=== PATIENT | female | born 1945 | race Caucasian/White ===

== ENCOUNTER 2017-09-04 08:19 | Inpatient (IN) | payer OTHER ==
[~2017-09-04] VITALS: Ht 160 cm; Wt 121.1 kg
--- NOTE | ~2017-09-04 | EKG ---
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: Prem DYER : 1945 Requested By: Zak Echavarria Order Number: [id number] MD: Polo Cano Measurements Intervals [place] Rate: 80 P: 51 KS: 203 QRS: -34 QRSD: 108 T: 208 QT: 371 QTc: 428 Interpretive Statements Sinus rhythm Left axis deviation RSR' in V1 or V2, probably normal variant Repol abnrm suggests ischemia, anterolateral Compared to ECG 05/21/2017 20:25:22 Left-axis deviation now present RSR' in V1 or V2 now present Early repolarization now present Possible ischemia now present Ventricular premature complex(es) no longer present T-wave abnormality no longer present Electronically Signed On 09-04-2017 14:03:00 [employer]ER [employer]IN by Polo Cano [email or web address] <ELECTRONICALLY SIGNED> By: Polo Cano MD 09/04/17 1403 1012 1012 Polo Cano MD /EPI
--- NOTE | ~2017-09-04 | H ---
[facility] [place] [address] HISTORY AND PHYSICAL Name: DORINDAMAXIM HILARIO Room #: 409-P ADM IN M.R.#: [id number] Admission: 09/04/17 Attend Phys: Mallory Thorne MD Discharge: Date of : 49 Report #: [id number] THIS REPORT FOR: //name// CC: Mallory Thorne DATE OF SERVICE: 09/04/2017 HISTORY OF PRESENT ILLNESS: The patient is a 71-year-old female who was admitted to the hospital after a fall with fracture of her right femur. The patient apparently was having a bath with a bath aide and she was turned on her left side and she said that this is the procedure that they have done all the time to bathe her, but unfortunately after she turned to the left side, she lost her balance and she slid off the bed to be between the bed and wall and she sustained fracture. The patient was brought to the Emergency Room to be evaluated. PAST MEDICAL HISTORY: Significant for fracture of the left distal femur that was treated conservatively for about a year and after that the patient went through left above-knee amputation. The patient had a history of hypokalemia, hyponatremia, respiratory failure with bilateral pneumonia, chronic lower back pain, severe neck pain that has been going on for a period of time and actually she was seen by neurologist for this pain. The patient has a history of hypertension, diabetes mellitus, diabetic neuropathy, hyperlipidemia, benign tumor of the adrenal gland, anemia and depression. The patient had a history of gastroesophageal reflux disease, anxiety disorder, insomnia, hypothyroidism, overactive bladder disease and fracture of the left hip status post ORIF. MEDICATIONS: Reviewed. ALLERGIES: NAPROXEN, LORAZEPAM and SULFA. SOCIAL HISTORY: The patient is living in a [place] [facility] facility. She denies any history of smoking, alcohol use or drug use. FAMILY HISTORY: Noncontributory. REVIEW OF SYSTEMS: The patient denies any headache, but continued to have fair amount of pain on her neck. The patient did not have any trauma to the neck as she is able to move her neck. The patient denies any nausea, vomiting or changes in her bowels. She denies any chest pain or shortness of breath. The patient denies any pain on the arms or legs. PHYSICAL EXAMINATION: VITAL SIGNS: Show a temperature of 98.3, pulse 74, respirations 16, blood pressure 134/64. HEAD AND NECK: Unremarkable. [address] [address] HISTORY AND PHYSICAL Name: MAXIM SETH Room #: 409-P [facility] IN .R.#: [id number] Admission: 09/04/17 Attend Phys: Mallory Thorne MD Discharge: Date of : 49 Report #: [id number] NECK: Supple. LUNGS: Clear to auscultation with good air entry bilaterally. CARDIAC: S1, S2, without any murmur or gallop. ABDOMEN: Benign. Bowel sounds were positive. EXTREMITIES: Without any edema. The patient has her knee immobilized on the right leg. LABORATORY DATA: The patient's lab showed white count of 13.2, hemoglobin 13, hematocrit 39.3, platelet count 400. Basic metabolic panel showed a sodium of 140, potassium 2.1, chloride 94, bicarbonate 41, BUN 12, creatinine 0.6. The patient's INR was 1 and PTT was 26.3. X-ray of the right hip showed no acute process. X-ray of the right knee showed acute transverse distal femur fracture with impaction and angulation of the fracture site. Chest x-ray showed no acute process. EKG showed sinus rhythm with left axis deviation, RSR in V1 and V2 with a possibility of being normal variation, repolarization abnormalities on the anterolateral leads. ASSESSMENT AND PLAN: Right distal femur fracture, severe osteoporosis, abnormal EKG. The patient was considered a poor candidate for surgical intervention. The patient was admitted to the hospital for pain management for now. The patient to continue her current medications. We will have Physical Therapy and Occupational Therapy to work with the patient. The patient will continue the immobilizer. We will continue to monitor the patient. <ELECTRONICALLY SIGNED> By: Mallory Thorne MD 09/06/17 0802 0730 0809 Mallory Thorne MD /nt
--- NOTE | ~2017-09-04 | O ---
[facility] [place] [address] OPERATIVE REPORT Name: DORINDAMAXIM HILARIO Room #: 409-P [facility] IN M.R.#: [id number] Admission: 09/04/17 Attend Phys: Mallory Thorne MD Discharge: 09/11/17 Date of : 49 Report #: [id number] THIS REPORT FOR: //name// CC: Mallory Thorne DATE OF SERVICE: 09/07/2017 PREOPERATIVE DIAGNOSIS: Right distal femur fracture. POSTOPERATIVE DIAGNOSIS: Right distal femur fracture. PROCEDURE: Right distal femur open reduction and internal fixation. SURGEON: Michael Tee MD. ANESTHESIA: General. ESTIMATED BLOOD LOSS: 50 mL. DRAINS: None. TOURNIQUETS: None. COMPLICATIONS: None. DESCRIPTION OF PROCEDURE: The patient was brought to the operating room where she was placed under general anesthesia. Once under adequate general anesthesia, her right lower extremity was prepped and draped in sterile manner. A lateral incision of approximately 20 cm in length was then made along the lateral femur extending to the knee. This was dissected down through the soft tissue to the tensor fascia, which was incised exposing the lateral distal femur. Any hematoma was evacuated from the fracture site and subsequently, a reduction was achieved of the fracture with subsequent fixation and utilizing fluoroscopy for guidance with a large Synthes locking distal femur plate. The distal locking screws were placed and verified under fluoroscopy to be in satisfactory position. Subsequently, the proximal screws were placed. Once complete, excellent fixation and alignment were achieved. Approximately, 5 distal screws, 4 of them locking, were placed in the condylar fragment, approximately 6 screws were placed for fixation. Excellent fixation and alignment were achieved in this manner as verified under fluoroscopy. The wound was then irrigated copiously and closed with #1 Vicryl in the deep fascia, 2-0 Vicryl in subcutaneous tissues and marija were used for the skin. The wounds were dressed with Xeroform, 4 x 4s, and sterile soft compressive dressing with a knee immobilizer was then placed. There were no complications from the [facility] [address] [place] [address] OPERATIVE REPORT Name: MAXIM SETH YANELIS Room #: 409-P [facility] IN .R.#: [id number] Admission: 09/04/17 Attend Phys: Mallory Thorne MD Discharge: 09/11/17 Date of : 49 Report #: [id number] procedure. The patient tolerated the procedure well and went to the recovery room without incident. <ELECTRONICALLY SIGNED> By: Michael Tee MD 09/27/17 1028 1206 1231 Michael Tee MD /nt
--- NOTE | ~2017-09-04 | HC ---
[facility] [place] [address] CONSULTATION Name: DORINDAMAXIM HILARIO Room #: 409-P ADM IN M.R.#: [id number] Admission: 09/04/17 Attend Phys: Mallory Thorne MD Discharge: Date of : 47 Report #: [id number] THIS REPORT FOR: //name// CC: Mallory Thorne CHIEF COMPLAINT: Right distal femur fracture. HISTORY OF PRESENT ILLNESS: This frail 71-year-old female presents after a new fall injuring her right knee. She has had previous injuries involving the left hip and then the left distal femur with a badly comminuted distal femoral fracture. That side was treated nonsurgically due to the location and nature of the fracture and other preexisting metal fixation. Ultimately that fracture failed to unite and she underwent a left above-knee amputation due to chronic pain. I believe she has been weightbearing on the right side and has been transferring, but really not ambulating much now with this new injury. X-rays confirm a fracture in the distal right femur in the supracondylar region with mild angular deformity. At the time of my evaluation, she is alert and oriented. She notes she is doing well on the left side without much discomfort at all at her previous above knee amputation site. She has done reasonably well on the right side with some ongoing intermittent discomfort. Now, she has more pain and no ability to stand or bear weight on the involved side. OBJECTIVE: The right knee and thigh demonstrate only minor swelling and no significant bruising. There is discomfort to palpation, but no obvious deformity. The lower leg, foot and ankle appear to be intact and stable. X-rays of the right knee and distal femur reveal a transverse mildly comminuted fracture of the distal femur in the supracondylar region. The joint demonstrates some degenerative change, but satisfactory joint alignment. ASSESSMENT AND PLAN: I have discussed these issues with the patient noting further treatment options. I think we probably can improve alignment and stability with surgical stabilization of this new right femur fracture. She is at some risk for perioperative problems given her size as she is moderately obese. She understands and wishes to go ahead with surgical stabilization hoping to achieve a stable and functional right lower extremity for weightbearing and transfers. I have explained that scheduling issues would suggest that this might be done by my partner, Dr. Tee tomorrow. If that is not workable then I can see about surgical time for or Monday of this week, although I have explained I am leaving town for a mission trip out of the country on Monday and so would not be available for a followup beyond that point. At this time, she would like to press ahead with surgery as soon as [facility] [address] [place] [address] CONSULTATION Name: MAXIM SETH Room #: 409-P [facility] IN M.R.#: [id number] Admission: 09/04/17 Attend Phys: Mallory Thorne MD Discharge: Date of : 47 Report #: [id number] scheduling will allow. Pending clearance and OR availability, I think we may be able to proceed with Dr. Tee performing the surgery tomorrow on 09/06/2017. <ELECTRONICALLY SIGNED> By: Fletcher Jean MD 09/07/17 0805 1731 2306 Fletcher Jean MD /nt
[~2017-09-04 08:19] MED LIST: ACETAMINOPHEN-1 EAC1 PO; ADULT LOW DOSE81 MG PO; AFRIN15 ML NS; ALDACTONE25 MG; ALDACTONE25 MG PO; ALDACTONE50 MG PO; AMBIEN 10 MG TA10 MG PO; AMBIEN 5 MG TABL5 M1 PO; AMINO-OPTI-C1000 MG PO; AMLODIPINE BESY10 MG PO; APAP500 PO; ARTIFICIAL TEA1 EACH OPHTHALMIC; ASPIR 8181 MG PO; ASPIRIN325 PO; ATORVASTATIN CA10 MG PO; AUGMENTIN 875-1 EACH PO; AUGMENTIN 875875 M1 PO; AVELOX 400 MG400 MG; B COMPLEX-VITA1 EACH PO; BACTROBAN NASAL1 GM NS; BISACODYL SUPP10 MG RECTAL; BUPROPION HCL200 MG PO; BUPROPION XL150 MG PO; BUTALB-ACETAMI1 EACH PO; BUTALB-APAP-CA1 EACH PO; CALCIUM +D & M1 EACH PO; CALCIUM 600 +1 EAC1 PO; CARISOPRODOL 3350 M1; CARISOPRODOL 3350 M1 PO; CARISOPRODOL 3350 MG; CEFTIN500 MG PO; CELEBREX 200 M200 M1 PO; CELEBREX 200 M200 MG PO; CEPHALEXIN 500500 M1 PO; CIPRO500 MG PO; CITRATE OF MAG296 ML PO; CLARITIN10 M3 PO; CLARITIN10 MG PO; CLONIDINE HCL0.1 MG PO; COLACE100 MG PO; COMPAZINE10 M1 PO; CYMBALTA60 MG PO; D3 DOTS2000 UNIT PO; DESITIN113 GM TOP; DIAZEPAM 10 MG10 M1 PO; DILAUDID 2 MG TA2 MG PO; DITROPAN XL5 M1 PO; DIVIGEL0.5 MG PO; DOXYCYCLINE 10100 MG PO; DULCOLAX5 MG PO; DUONEB 2.5-0.5 M3 ML INH; ENOXAPARIN30 MG/0.1 SUBQ; ENOXAPARIN40 MG/0.1 SUBQ; ESTRACE0.5 MG PO; FENTANYL PA12 MCG/H1 TP; FISH OIL 1,0001 EAC5 PO; FLEET ENEMA118 ML RC; FLOMAX0.4 MG PO; FOLIC ACID1 MG PO; FOSAMAX 70 MG T70 M1 PO; GABAPENTIN 100100 MG PO; GABAPENTIN800 M1 PO; GLUCOPHAGE XR500 MG PO; GLUCOPHAGE500 MG PO; GLYCOLAX POWDER17 G1 PO; HYDROCERIN CREA1 JAR TOP; HYDROCERIN CREA1 JAR TP; HYDROCHLOROTHIA25 M1 PO; HYDROCODONE-AP1 EACH PO; HYDROXYZINE HCL25 M1 PO; HYDROXYZINE PO; K-DUR 20 MEQ T20 MEQ PO; KEFLEX500 MG PO; KLOR-CON 1010 MEQ; KLOR-CON 1010 MEQ PO; LAMISIL AT 1% C12 G1 TP; LEVAQUIN 500 M500 M4 PO; LEVOTHYROXIN0.175 MG PO; LEVOTHYROXINE 0.15MG PO; LIORESAL 10 MG10 MG PO; LIPITOR10 MG PO; LISINOPRIL10 MG PO; LISINOPRIL20 MG PO; MAGNESIUM OXID400 MG PO; MAGOX 400400 MG PO; MELATONIN10 M1 PO; MELATONIN3 MG PO; METAMUCIL PAC1 UDPKT PO; METAMUCIL283 GM PO; METFORMIN HCL500 MG PO; METOLAZONE 2.52.5 M1 PO; MIRALAX17 GM PO; MS CONTIN 100100 MG PO; MS CONTIN 30 MG30 M1 PO; MS CONTIN 60 MG60 M1 PO; MS CONTIN100 MG PO; MS CONTIN15 MG PO; MS CONTIN30 MG PO; MULTIVITAMINS PO; NASAL SPRAY30 ML; NEURONTIN 300300 M1 PO; NEURONTIN600 MG PO; NORCO 7.5-3251 EACH PO; NORVASC10 MG PO; NOVOLOG100 UNIT/1 SUBQ; ONDANSETRON HCL4 M2 PO; ORAMORPH PO; ORENCIA125 MG/1 M IV; ORENCIA125 MG/1 M SQ; OXYBUTYNIN 5 MG5 M1 PO; PENTOXIFYLLINE400 MG PO; PEPCID20 MG PO; POTASSIUM20 PO; PREDNISONE 10 M10 MG PO; PREDNISONE 20 M20 MG PO; PREDNISONE 5 MG5 M1; PREDNISONE 5 MG5 M1 PO; PREPARATION H C51 G1 RC; PROBIOTIC1 EAC1 PO; PROTONIX40 M1 PO; PROTONIX40 MG PO; REMERON15 M1 PO; REMERON15 MG PO; REQUIP 0.25 M0.25 M1 PO; REQUIP 0.25 M0.25 MG PO; ROBITUSSIN DM118 ML PO; SALINE MIST45 ML NS; SALINE NASAL SP30 ML NASAL; SALINE NOSE SPR45 ML NS; SENEXON-S TABL1 EACH PO; SENNA PLUS TAB1 EACH PO; SENOKOT-S1 TA1 PO; SIMETHICON CHEW80 M1 PO; SIMVASTATIN40 MG PO; SPIRONOLACTONE25 M1 GT; SYNTHROID200 MCG PO; SYNTHROID25 MCG; TEARS NATURALE1 EACH OPHTHALMIC; TOPAMAX 100 MG100 MG PO; TOPAMAX 25 MG T25 M1 PO; TOPROL XL50 MG PO; TRAMADOL 50 MG50 MG PO; TRAMADOL HCL50 MG PO; TRAZODONE HCL50 MG PO; TRENTAL400 MG PO; TREXALL10 MG PO; TRIAM60 TP; TRIPLE ANTIBIO1 EACH TOP; TYLENOL325 MG PO; UNICOMPLEX M TA1 TA1 PO; VALIUM5 MG PO; VENTOLIN HFA INH8 GM INH; VITAMIN C120 GM PO; VITAMIN D1000 UNI1 PO; VOLTAREN GEL 1100 G2; VOLTAREN GEL 1100 G2 TOP; VOLTAREN GEL 1100 GM TOP; WELLBUTRIN XL150 MG PO; WELLBUTRIN XL300 MG PO; ZANAFLEX2 MG PO; ZANAFLEX4 MG; ZANTAC 150MG T150 M1 PO; ZAROXOLYN 2.5M2.5 M1 PO; orencia
[2017-09-04 08:21] VITALS: BP 134/64
[2017-09-04 09:45] LABS: HEMATOCRIT 39.3 % (37.0-47.0); MCH 27.7 pg (26.0-34.0); MCHC 33.2 g/dL (28.0-37.0); MCV 83.4 fL (80.0-100.0); RBC 4.71 mil/uL (4.20-5.00); RDW 15.3 % (10.5-14.5); WBC 13.2 thou/uL (4.0-11.0)
[2017-09-04 09:53] LABS: CALCIUM 9.9 mg/dL (8.5-10.1); CREATININE 0.6 mg/dL (0.6-1.0)
[2017-09-04 09:56] LABS: POTASSIUM 2.1 mmol/L (3.5-5.1)
[2017-09-04 10:02] LABS: APTT 26.3 Seconds (24.5-32.8)
[2017-09-04 10:50] VITALS: BP 134/64
[2017-09-04 11:14] VITALS: BP 133/68
[2017-09-04 11:50] VITALS: BP 115/62
[2017-09-04] MEDS ORDERED: VALIUM5 MG PO (13:16)
[2017-09-04] MEDS ORDERED: WELLBUTRIN SR150 MG PO (13:24)
[2017-09-04] MEDS ORDERED: THERA M PLUS T1 EAC2 PO (13:40)
[2017-09-04] MEDS ORDERED: NORCO 7.5-3251 EACH PO (13:42)
[2017-09-04] MEDS ORDERED: LASIX 40 MG TAB40 M2 PO (13:42)
[2017-09-04] MEDS ORDERED: METOLAZONE 2.52.5 M1 PO (13:43)
[2017-09-04] MEDS ORDERED: XELJANZ XR11 MG PO (13:45)
[2017-09-04] MEDS ORDERED: TOPAMAX 25 MG T25 M1 PO (13:49)
[2017-09-04 16:00] VITALS: BP 152/70
[2017-09-04 20:49] VITALS: BP 142/68
[2017-09-05 00:10] VITALS: BP 140/69
[2017-09-05 04:30] VITALS: BP 123/62
[2017-09-05 06:51] VITALS: BP 131/81
[2017-09-05 08:15] LABS: CALCIUM 9.3 mg/dL (8.5-10.1); CREATININE 0.5 mg/dL (0.6-1.0)
[2017-09-05 08:17] LABS: POTASSIUM 1.9 mmol/L (3.5-5.1)
[2017-09-05 16:10] VITALS: BP 107/53
[2017-09-05 19:39] VITALS: BP 81/43
[2017-09-06] VITALS: BP 92/46
[2017-09-06 04:00] VITALS: BP 127/100
[2017-09-06 06:03] LABS: ABSOLUTE NEUTROPHILS 9.1 thou/uL (1.4-8.2); BASOPHILS 0.3 % (0.0-2.0); EOSINOPHILS 13.7 % (0.0-3.0); HEMATOCRIT 30.3 % (37.0-47.0); LYMPHOCYTES 13.5 % (24.0-44.0); MCH 27.8 pg (26.0-34.0); MCHC 33.2 g/dL (28.0-37.0); MCV 83.8 fL (80.0-100.0); MONOCYTES 5.6 % (1.0-8.0); POLYS 66.9 % (36.0-66.0); RBC 3.61 mil/uL (4.20-5.00); RDW 15.4 % (10.5-14.5); WBC 13.5 thou/uL (4.0-11.0)
[2017-09-06 06:07] LABS: PLATELET COUNT 322 thou/uL (150-400)
[2017-09-06 06:22] LABS: CALCIUM 8.8 mg/dL (8.5-10.1); CREATININE 0.7 mg/dL (0.6-1.0)
[2017-09-06 06:28] LABS: POTASSIUM 2.6 mmol/L (3.5-5.1)
[2017-09-06 08:34] VITALS: BP 110/48
[2017-09-06 15:31] LABS: POTASSIUM 3.5 mmol/L (3.5-5.1)
[2017-09-06 20:00] VITALS: BP 91/71
[2017-09-07] VITALS (8 sets, daily range): BP systolic 83–118; BP diastolic 37–72
[2017-09-07 04:49] LABS: ABSOLUTE NEUTROPHILS 8.9 thou/uL (1.4-8.2); BASOPHILS 0.7 % (0.0-2.0); EOSINOPHILS 16.2 % (0.0-3.0); HEMATOCRIT 31.3 % (37.0-47.0); HEMOGLOBIN 10.3 gm/dL (12.0-15.0); LYMPHOCYTES 15.3 % (24.0-44.0); MCHC 33.1 g/dL (28.0-37.0); MCV 84.6 fL (80.0-100.0); MONOCYTES 5.4 % (1.0-8.0); POLYS 62.4 % (36.0-66.0); RDW 15.6 % (10.5-14.5); WBC 15.2 thou/uL (4.0-11.0)
[2017-09-07 04:58] LABS: CALCIUM 9.1 mg/dL (8.5-10.1); CREATININE 0.6 mg/dL (0.6-1.0); POTASSIUM 3.5 mmol/L (3.5-5.1)
[2017-09-07 06:15] LABS: PLATELET COUNT 304 thou/uL (150-400)
[2017-09-08] VITALS: BP 117/67
[2017-09-08 04:00] VITALS: BP 99/43
[2017-09-08 04:13] LABS: HEMOGLOBIN 8.4 gm/dL (12.0-15.0); MCH 28.2 pg (26.0-34.0); MCHC 33.5 g/dL (28.0-37.0); MCV 84.1 fL (80.0-100.0); RBC 2.98 mil/uL (4.20-5.00); RDW 15.4 % (10.5-14.5); WBC 13.7 thou/uL (4.0-11.0)
[2017-09-08 04:19] LABS: CALCIUM 8.2 mg/dL (8.5-10.1); CREATININE 0.5 mg/dL (0.6-1.0)
[2017-09-08 04:25] LABS: POTASSIUM 2.6 mmol/L (3.5-5.1)
[2017-09-08 07:50] VITALS: BP 125/62
[2017-09-08 18:00] VITALS: BP 82/50
[2017-09-08 18:38] LABS: HEMATOCRIT 22.3 % (37.0-47.0); HEMOGLOBIN 7.6 gm/dL (12.0-15.0); MCH 28.7 pg (26.0-34.0); MCHC 33.9 g/dL (28.0-37.0); MCV 84.6 fL (80.0-100.0); RBC 2.64 mil/uL (4.20-5.00); RDW 15.5 % (10.5-14.5); WBC 10.4 thou/uL (4.0-11.0)
[2017-09-08 19:00] VITALS: BP 134/111
[2017-09-09] VITALS: BP 94/47
[2017-09-09 04:00] VITALS: BP 90/46
[2017-09-09 04:16] LABS: HEMATOCRIT 21.7 % (37.0-47.0); HEMOGLOBIN 7.1 gm/dL (12.0-15.0); MCH 27.5 pg (26.0-34.0); MCHC 32.7 g/dL (28.0-37.0); MCV 84.1 fL (80.0-100.0); RBC 2.57 mil/uL (4.20-5.00); RDW 15.6 % (10.5-14.5); WBC 11.6 thou/uL (4.0-11.0)
[2017-09-09 04:28] LABS: CALCIUM 8.1 mg/dL (8.5-10.1); CREATININE 0.7 mg/dL (0.6-1.0); POTASSIUM 4.3 mmol/L (3.5-5.1)
[2017-09-09 06:55] LABS: URINE BILIRUBIN NEGATIVE (Negative); URINE BLOOD TRACE (Negative); URINE CLARITY CLEAR; URINE COLOR YELLOW; URINE GLUCOSE-RANDOM* NEGATIVE (Negative); URINE KETONES NEGATIVE (Negative); URINE NITRITE-REFLEX NEGATIVE (Negative); URINE PROTEIN (DIPSTICK) NEGATIVE (Negative); URINE SPECIFIC GRAVITY <= 1.005 (1.005-1.035)
[2017-09-09 06:56] LABS: URINE LEUKOCYTES-REFLEX 1+ (Negative)
[2017-09-09 07:07] LABS: SQUAMOUS 0-3 Few /LPF (0-3)
[2017-09-09 07:08] LABS: BACTERIA-REFLEX None Seen /HPF (None Seen); CASTS None Seen /LPF (None Seen); CRYSTALS None Seen /LPF (None Seen); URINE RBC 0-2 Rare /HPF (0-2); URINE WBC-REFLEX 6-15 Few /HPF (0-5); WBC CLUMPS Occasional (None Seen)
[2017-09-09 08:00] VITALS: BP 86/49
[2017-09-09 16:17] VITALS: BP 103/56; BP 95/63
[2017-09-09 19:57] VITALS: BP 104/52; BP 108/52; BP 97/42
[2017-09-09 20:07] VITALS: BP 103/56
[2017-09-10 05:41] LABS: ABSOLUTE NEUTROPHILS 7.4 thou/uL (1.4-8.2); BASOPHILS 0.6 % (0.0-2.0); EOSINOPHILS 14.1 % (0.0-3.0); LYMPHOCYTES 17.5 % (24.0-44.0); MCH 28.3 pg (26.0-34.0); MCHC 33.3 g/dL (28.0-37.0); MONOCYTES 7.1 % (1.0-8.0); PLATELET COUNT 306 thou/uL (150-400); POLYS 60.7 % (36.0-66.0); RBC 3.41 mil/uL (4.20-5.00); RDW 14.8 % (10.5-14.5); WBC 12.1 thou/uL (4.0-11.0)
[2017-09-10 05:52] LABS: CREATININE 0.5 mg/dL (0.6-1.0); POTASSIUM 3.9 mmol/L (3.5-5.1)
[2017-09-10 05:56] LABS: HEMOGLOBIN 9.7 gm/dL (12.0-15.0)
[2017-09-10 16:22] VITALS: BP 117/63
[2017-09-10 20:00] VITALS: BP 102/48
[2017-09-11 04:00] VITALS: BP 114/56
[2017-09-11 08:18] VITALS: BP 127/66
[2017-09-11] MEDS ORDERED: LEVAQUIN 500 M500 M2 PO (09:21)
[2017-09-11] MEDS ORDERED: ENOXAPARIN40 MG/0.1 SUBQ (09:22)
[2017-09-11] MEDS ORDERED: KLOR-CON M2020 MEQ PO (09:23)
== END 2017-09-11 11:50 | DRG 480 ==
LOC: ER 08:19 → 4N 10:16 → EROBS 10:16 → 4N 11:16
PROVIDERS: Emergency Medicine; Internal Medicine; Nurse Practitioner Adult Health; Orthopaedic Surgery Foot and Ankle Surgery
PROC: 0QSB04Z Reposition Right Lower Femur with Internal Fixation Device, Open Approach (ICD-10-PCS; principal; 2017-09-07)
PROC: 30233N1 Transfusion of Nonautologous Red Blood Cells into Peripheral Vein, Percutaneous Approach (ICD-10-PCS; 2017-09-09)
DX: S72.401A Unspecified fracture of lower end of right femur, initial encounter for closed fracture (principal); J18.9 Pneumonia, unspecified organism; D62 Acute posthemorrhagic anemia; M06.9 Rheumatoid arthritis, unspecified; I10 Essential (primary) hypertension; E78.00 Pure hypercholesterolemia, unspecified; F32.9 Major depressive disorder, single episode, unspecified; E11.9 Type 2 diabetes mellitus without complications; G89.29 Other chronic pain; M54.5 Low back pain; K21.9 Gastro-esophageal reflux disease without esophagitis; F41.9 Anxiety disorder, unspecified; G47.00 Insomnia, unspecified; E03.9 Hypothyroidism, unspecified; E87.6 Hypokalemia; E11.40 Type 2 diabetes mellitus with diabetic neuropathy, unspecified; E78.5 Hyperlipidemia, unspecified; M81.0 Age-related osteoporosis without current pathological fracture; R51 Headache; Z88.2 Allergy status to sulfonamides; Z88.8 Allergy status to other drugs, medicaments and biological substances; Z89.612 Acquired absence of left leg above knee; Z79.899 Other long term (current) drug therapy; W18.39XA Other fall on same level, initial encounter; Y93.89 Activity, other specified; Y92.89 Other specified places as the place of occurrence of the external cause; Y99.8 Other external cause status
CPT/HCPCS: 10790; 50010; 50101; 50386; 50417; 50455; 50934; 51412; 55430; 56524; 56525; 62110; 62900; 70005

== ENCOUNTER 2018-08-16 10:14 | Inpatient (IN) | payer OTHER ==
[2018-08-16] VITALS (7 sets, daily range): BP systolic 137–185; BP diastolic 77–105
[~2018-08-16] VITALS: Ht 167.6 cm; Wt 106.2 kg
--- NOTE | ~2018-08-16 | O ---
[facility] [place] [address] OPERATIVE REPORT Name: MAXIM SETH Room #: 240-P [facility] IN M.R.#: [id number] Admission: 08/16/18 Attend Phys: Mallory Thorne MD Discharge: Date of : 49 Report #: [id number] THIS REPORT FOR: //name// CC: Mallory Thorne DATE OF SERVICE: 08/27/2018 PREOPERATIVE DIAGNOSIS: Right hip intertrochanteric hip fracture. POSTOPERATIVE DIAGNOSIS: Right hip intertrochanteric hip fracture. PROCEDURE: Right hip intramedullary nail. SURGEON: Michael Tee M.D. BIOMETRIC SCREENER: Lisa Steinberg. ANESTHESIA: General. ESTIMATED BLOOD LOSS: 50 mL. DRAINS: None. TOURNIQUETS: None. COMPLICATIONS: None. DESCRIPTION OF PROCEDURE: The patient was brought to the operating room where she was placed under general anesthesia. Once under adequate general anesthesia, she was placed onto the fracture table. The right hip was then prepped and draped in a sterile manner. A reduction had been achieved on the fracture table. A 7 cm incision was made in the lateral skin. Dissection carried down through the tensor fascia and exposure of the proximal femur was achieved. A guidewire was then placed down the shaft of the femur. The 11 mm Synthes trochanteric femoral nail was then placed. Subsequent fixation through a separate incision after utilizing an opening drill was made with a trochanteric femoral nail placed into a center-center position utilizing a guidewire and fluoroscopy for guidance. Excellent fixation was achieved. The fracture was impacted and subsequently the distal transverse screw was placed through that same 3 cm distal incision. This was a 34 mm screw. Excellent fixation and alignment was achieved in this manner. The wounds were irrigated copiously and closed with #1 Vicryl in the deep fascia, 2-0 Vicryl in the subcutaneous tissues and marija for the skin. The wounds were dressed with Xeroform, 4 x 4s, and a sterile soft compressive dressing was placed. There [address] [address] OPERATIVE REPORT Name: MAXIM SETH Room #: 240-P [facility] IN ..#: [id number] Admission: 08/16/18 Attend Phys: Mallory Thorne MD Discharge: Date of : 47 Report #: [id number] were no complications from the procedure. The patient tolerated the procedure well and went to the recovery room without incident. By: 1541 1556 Michael Tee MD /nt
[~2018-08-16 10:14] MED LIST changes: +KLOR-CON M2020 MEQ PO; +LASIX 40 MG TAB40 M2 PO; +LEVAQUIN 500 M500 M2 PO; +THERA M PLUS T1 EAC2 PO; +WELLBUTRIN SR150 MG PO; +XELJANZ XR11 MG PO
[2018-08-16 10:41] LABS: ABSOLUTE NEUTROPHILS 15.5 thou/uL (1.4-8.2); BASOPHILS 0.3 % (0.0-2.0); EOSINOPHILS 0.1 % (0.0-3.0); HEMATOCRIT 39.5 % (37.0-47.0); HEMOGLOBIN 13.1 gm/dL (12.0-15.0); LYMPHOCYTES 4.6 % (24.0-44.0); MCH 29.2 pg (26.0-34.0); MCHC 33.2 g/dL (28.0-37.0); MCV 87.9 fL (80.0-100.0); MONOCYTES 6.3 % (1.0-8.0); PLATELET COUNT 289 thou/uL (150-400); POLYS 88.7 % (36.0-66.0); RBC 4.49 mil/uL (4.20-5.00); RDW 15.3 % (10.5-14.5); WBC 17.4 thou/uL (4.0-11.0)
[2018-08-16] MEDS ORDERED: MAGOX 400400 MG PO (10:51)
[2018-08-16] MEDS ORDERED: ONDANSETRON HCL4 M2 PO (10:54)
[2018-08-16] MEDS ORDERED: LOPERAMIDE 2 MG2 M1 PO (10:56)
[2018-08-16 11:03] LABS: CALCIUM 9.1 mg/dL (8.5-10.1); CREATININE 0.6 mg/dL (0.6-1.0)
[2018-08-16 11:05] LABS: POTASSIUM 2.7 mmol/L (3.5-5.1)
[2018-08-16 11:06] LABS: BE(vivo) 0.8 mmol/L (-2 to +3); PCO2 49.5 mmHg (35.0-45.0); PO2 51.5 mmHg (80.0-100.0); pH 7.355 (7.360-7.450); sO2 84.6 % (92.0-98.0)
[2018-08-16 11:09] LABS: ALBUMIN 3.6 g/dL (3.4-5.0); TOTAL BILIRUBIN 0.5 mg/dL (<0.1-1.0); TOTAL PROTEIN 7.7 g/dL (6.4-8.2)
[2018-08-17 04:54] VITALS: BP 182/97
--- NOTE | 2018-08-17 05:34 | NUR ---
PT. C/O CHEST PAIN AND LOWER BACK; REFUSED MORPHINE, REQUESTED ACETAMINOPHEN; MEDICATION GIVEN PER ORDERED. ABLE TO REST A FEW HOURS DURING THE NIGHT; AMBULATE TWICE; STABLE; NO BLEEDING OVER R. GROIN AREA. ASSESSMENT CHARGED.
--- NOTE | 2018-08-17 05:44 | NUR ---
PT. C/O HEADACHE; NECK AND SHOULDER PAIN EARLY ON THE NIGHT; PRN PAIN MEDICATION GIVEN; HIGH BP; PHYSICIAN CONTACTED; ORDERS RECEIVED; ABLE TO REST DURING THE NIGHT; VAISHNAVI CARE X2;
[2018-08-17 06:11] LABS: ABSOLUTE NEUTROPHILS 14.5 thou/uL (1.4-8.2); BASOPHILS 0.1 % (0.0-2.0); HEMATOCRIT 37.1 % (37.0-47.0); HEMOGLOBIN 12.3 gm/dL (12.0-15.0); LYMPHOCYTES 4.5 % (24.0-44.0); MCH 28.9 pg (26.0-34.0); MCHC 33.1 g/dL (28.0-37.0); MCV 87.3 fL (80.0-100.0); PLATELET COUNT 271 thou/uL (150-400); POLYS 89.4 % (36.0-66.0); RBC 4.25 mil/uL (4.20-5.00); RDW 15.5 % (10.5-14.5); WBC 16.3 thou/uL (4.0-11.0)
[2018-08-17 06:25] LABS: CALCIUM 8.7 mg/dL (8.5-10.1); CREATININE 0.6 mg/dL (0.6-1.0)
[2018-08-17 07:45] VITALS: BP 183/98
--- NOTE | 2018-08-17 08:17 | EKG ---
[place] [address] [facility] [place] [place] [address] ELECTROCARDIOGRAM REPORT Name: MAXIM SETH Room #: 219-P ADM IN M.R.#: [id number] Admission: 08/16/18 Attend Phys: Mallory Thorne MD Discharge: Date of : 47 Report #: [id number] THIS REPORT FOR: //name// [facility] Test Date: 2018-08-16 Test Time: 18:11:11 Pat Name: MAXIM SETH Department: Room: 219 Gender: F Drainlayer: Charbel EUBANKS : 1945 Requested By: Jelani Mcmanus Order Number: [id number] MD: Polo Cano Measurements Intervals [place] Rate: 87 P: 75 PA: 214 QRS: -31 QRSD: 105 T: 151 QT: 365 QTc: 439 Interpretive Statements Sinus rhythm Borderline prolonged PA interval Left axis deviation RSR' in V1 or V2, probably normal variant Repol abnrm suggests ischemia, anterolateral Baseline wander in lead(s) III Compared to ECG 09/04/2017 10:12:12 No significant changes Electronically Signed On 08-17-2018 8:17:21 GRAB OPERATOR by Polo Cano [email or web address] <ELECTRONICALLY SIGNED> By: Polo Cano MD 08/17/18816 10 10 Polo Cano MD /EPI
[2018-08-17] MEDS ORDERED: WELLBUTRIN XL300 MG PO (09:52)
[2018-08-17 10:15] LABS: URINE CLARITY CLOUDY; URINE COLOR YELLOW; URINE GLUCOSE-RANDOM* NEGATIVE (Negative); URINE KETONES 1+ (Negative); URINE PROTEIN (DIPSTICK) 1+ (Negative)
[2018-08-17 10:16] LABS: URINE BILIRUBIN NEGATIVE (Negative); URINE BLOOD 1+ (Negative); URINE LEUKOCYTES-REFLEX NEGATIVE (Negative); URINE NITRITE-REFLEX NEGATIVE (Negative); URINE UROBILINOGEN 0.2 E.U./dl (0.2-1.0)
[2018-08-17 10:31] LABS: TRIPLE PHOSPHATE CRYSTALS >10 Many /LPF (None Seen)
[2018-08-17 10:32] LABS: CASTS None Seen /LPF (None Seen); SQUAMOUS 4-10 Moderate /LPF (0-3); URINE RBC 0-2 Rare /HPF (0-2); URINE WBC-REFLEX 0-5 Rare /HPF (0-5)
--- NOTE | 2018-08-17 14:31 | NUR ---
met with patient, sp with Arvind and son Rafal. patient admits for SOA/resp failure. She resides at [facility], uses a david for transfers. During discussion with patient she vomited. RN assessing. Sp with son Rafal plan return to [facility] once stable. IF dc over weekend please call [facility]. [phone] and alert of discharge. Ask were to fax orders. Order chart copy. Arrange [facility] van via [employer] at [phone]. call son to alert of discharge.
[2018-08-17 15:05] VITALS: BP 164/99
--- NOTE | 2018-08-17 15:15 | NUR ---
VASCULAR ACCESS CONSULTED FOR A PICC FOR IV K+, ZOSYN, LEVOQUIN, AND HAS HAD MULITPLE IV'S. SHE SIGNED CONSENT, AND A TIME OUT WAS DONE WITH RN. PER POLICY HER LUACEPHALIC WAS ACCESSED X1 WITH US GUIDE. A 5FRDBLPICC TRIMMED AT 46CM AND INSERTED TO 45CM WITH A PEAKED PWAVE CAPTURED WITH ECG. LINE SECURED WITH A STATLOCK AND RELEASED TO RN FOR USE.
[2018-08-17 19:57] VITALS: BP 157/88
[2018-08-18] VITALS (7 sets, daily range): BP systolic 146–179; BP diastolic 84–106
--- NOTE | 2018-08-18 03:49 | NUR ---
ASSUMED CARE AT 1900. PT ALERT AND ORIENTED. CONGESTED AND COURSE BREATH SOUNDS. DOES NOT APPEAR TO RESPITORY DISTRESS. C/O PAIN IN THE HANDS DUE TO RA, CONTROLED BY PRN VICKY. PT HAD FREQUENT BMS. INCONTINENT OF BOTH BOWEL AND BLADDER. EXTERNAL FEMALE CATHETER IN USE.
[2018-08-18 04:41] LABS: CREATININE 0.5 mg/dL (0.6-1.0); POTASSIUM 3.2 mmol/L (3.5-5.1)
[2018-08-18 05:01] LABS: ABSOLUTE NEUTROPHILS 9.8 thou/uL (1.4-8.2); BASOPHILS 0.2 % (0.0-2.0); HEMATOCRIT 35.3 % (37.0-47.0); HEMOGLOBIN 11.4 gm/dL (12.0-15.0); LYMPHOCYTES 5.5 % (24.0-44.0); MCH 28.3 pg (26.0-34.0); MCHC 32.2 g/dL (28.0-37.0); MCV 87.9 fL (80.0-100.0); MONOCYTES 5.7 % (1.0-8.0); PLATELET COUNT 268 thou/uL (150-400); POLYS 88.6 % (36.0-66.0); RBC 4.01 mil/uL (4.20-5.00); RDW 15.4 % (10.5-14.5); WBC 11.1 thou/uL (4.0-11.0)
--- NOTE | 2018-08-18 17:39 | NUR ---
PT CARE ASSUMED AT 0700. PT ALERT AND ORIENTED X4 WITH MILD FORGETFULNESS. PT ALSO HAS PERIODS WHERE SHE IS DIFFICULT TO AROUSE. DR THOMAS NOTIFIED ON ROUNDS AND MADE SOME MEDICATION ADDITIONS. PT C/O CHRONIC PAIN AND MEDICATED WHEN SHE CAN BE. TURNING PT Q2 HRS AND PRN. PT REQUESTED THAT EXTERNAL URINARY CATH BE REMOVED AND NURSING OBLIGED THEN PT REQUESTED A WOODARD CATH BE PLACED BUT NURSING EDUCATED ON RISKS OF INFECTION SO PT DECIDED AGAINST IT AT THIS TIME. PT HAS BEEN TEARFUL AND SOMEWHAT DEPRESSED. FREQUENT BED WETTING AND TOTAL BED CHANGES. ISOLATION DC'D THIS AM WHEN CDIFF SAMPLE WAS REJECTED. NO LOOSE STOOLS NOTED. BP SLIGHTLY ELEVATED, VS OTHERWISE STABLE. NO DISTRESS NOTED.
--- NOTE | 2018-08-19 03:17 | NUR ---
ASSUMED PT CARE AT 1900. PT A/OX4, TEARFUL, SAD. NO COMPLAINTS OF CHEST PAIN. PT COMPLAINED OF SOME ARTHRITIC PAIN IN HANDS. PAIN MANAGED WITH PAIN MEDICATION. VITAL SIGNS STABLE. MIDNIGHT BP WAS 176/87, CLONIDINE GIVEN. ASSESSMENT CHARTED. PROGRESSING TOWARD PLAN OF CARE. WILL CONTINUE TO MONITOR.
[2018-08-19 04:12] LABS: ABSOLUTE NEUTROPHILS 6.3 thou/uL (1.4-8.2); BASOPHILS 0.3 % (0.0-2.0); HEMOGLOBIN 12.2 gm/dL (12.0-15.0); LYMPHOCYTES 9.8 % (24.0-44.0); MCH 28.7 pg (26.0-34.0); MCHC 32.9 g/dL (28.0-37.0); MCV 87.4 fL (80.0-100.0); MONOCYTES 9.3 % (1.0-8.0); PLATELET COUNT 269 thou/uL (150-400); POLYS 80.6 % (36.0-66.0); RBC 4.24 mil/uL (4.20-5.00); RDW 15.1 % (10.5-14.5); WBC 7.8 thou/uL (4.0-11.0)
[2018-08-19 04:18] LABS: CALCIUM 8.3 mg/dL (8.5-10.1); CREATININE 0.5 mg/dL (0.6-1.0)
[2018-08-19 04:23] VITALS: BP 193/99
[2018-08-19 04:23] LABS: POTASSIUM 2.3 mmol/L (3.5-5.1)
[2018-08-19 08:15] VITALS: BP 178/100
[2018-08-19 12:25] VITALS: BP 145/97
[2018-08-19 16:05] VITALS: BP 183/104
--- NOTE | 2018-08-19 17:26 | NUR ---
PT CARE ASSUMED APPROX 0700. PT ALERT AND ORIENTED X4. DENIES SOA. C/O CHRONIC PAIN THIS SHIFT. PRN PAIN MEDS USED TO MANAGE. BP ELEVATED THIS EVENING BUT IMPROVED FROM RECENT TREND. WILL MONITOR. VS OTHERWISE STABLE. BS WNL. TURNING PT Q2HRS AND PRN. IVF AND ABT REMAIN A PART OF THE POC. PICC LINE PATENT. K+ REPLACED THIS SHIFT FIRST TIME THIS AM SHE RECEIVED 60MEQ PER REPLACEMENT PROTOCOL AND 40MEQ SCHEDULED THAT DR THOMAS ORDERED THE PT TO STILL RECEIVE DESPITE 60MEQ ALREADY ADMIN. PT K+ LEVEL RECHECKED AND WAS STILL LOW. DR THOMAS WAS PAGED TO ASK IF HE STILL WANTED TO REPLACE PER PROTOCOL. HE WANTED PROTOCOL REPLACEMENT. IN PROCESS AT THIS TIME OF REPLACING. WILL F/U. NO DISTRESS NOTED.
--- NOTE | 2018-08-19 17:36 | NUR ---
MESSAGE LEFT REGARDING MOST RECENT BP ON DR THOMAS'S VOICEMAIL AT THIS TIME.
--- NOTE | 2018-08-19 18:07 | NUR ---
RETURNED PHONE CALL AND GAVE NEW ORDERS.
[2018-08-19 20:48] VITALS: BP 196/101
[2018-08-20 03:29] VITALS: BP 162/130
[2018-08-20 05:34] LABS: ABSOLUTE NEUTROPHILS 4.9 thou/uL (1.4-8.2); BASOPHILS 0.2 % (0.0-2.0); EOSINOPHILS 0.2 % (0.0-3.0); HEMATOCRIT 35.9 % (37.0-47.0); LYMPHOCYTES 15.8 % (24.0-44.0); MCH 29.5 pg (26.0-34.0); MCHC 33.5 g/dL (28.0-37.0); MCV 88.1 fL (80.0-100.0); MONOCYTES 11.4 % (1.0-8.0); PLATELET COUNT 252 thou/uL (150-400); POLYS 72.4 % (36.0-66.0); RBC 4.07 mil/uL (4.20-5.00); RDW 15.4 % (10.5-14.5); WBC 6.8 thou/uL (4.0-11.0)
[2018-08-20 05:41] LABS: CALCIUM 8.3 mg/dL (8.5-10.1); CREATININE 0.5 mg/dL (0.6-1.0); MAGNESIUM 1.5 mg/dL (1.8-2.4); POTASSIUM 3.6 mmol/L (3.5-5.1)
--- NOTE | 2018-08-20 07:33 | NUR ---
ASSUMED PT CARE 1899. PT A/OX4, VITALS SIGNS STABLE EXCEPT FOR SBP IN 190'S. BP MANAGED WITH SCHEDULED BP MEDS AND PRN CLONIDINE. PT COMPLAINED OF SOME HEADACHE POSSIBLY FROM THE ELEVATED BP. HEADACHE UNRESOLVED DESPITE GIVEN PAIN MEDICATIONS. AT ABOUT 0315, PT HAD AN EPISODE OF DIFFICULTY BREATHING. PATIENT WAS PUT ON 3L OF 02 AND ENCOURGAED TO COUGH AND TAKE DEEP BREATHS. THIS PARTIALLY HELPED. ABOUT 15MINS LATER, PT CALLED OUT AGAIN WITH THE SAME PROBLEM OF DIFFICULTY BREATHING. PT WAS NOT EASILY AROUSABLE. CHARGE NURSE AND SUPERVISOR STEFFEN HOUSE WAS NOTIFIED, RAPID RESPONSE TEAM CALLED AT ABOUT 0340. RT ADMINISTERED A BREATHING TREATMENT, AND ENCOURAGED PT TO USE THE FLUTTER VALVE OFTEN. PT SOUDED COARSE AND SOME WHEEZING NOTED. PT VERBALIZED FEELING A LITTLE BETTER AFTER INTERVENTIONS WERE IMPLEMENTED. PT RESTED WELL ON 3L OF 02, SATURATIONS AT 93-95%. PT WAS ABLE TO REST A LITTLE NO FURTHER COMPLAINTS OF DIFFICULTY BREATHING. FREQUENT CHECKS/ROUNDS. CONTINUE TO CLOSELY MONITOR.
[2018-08-20 08:45] VITALS: BP 146/88
--- NOTE | 2018-08-20 11:19 | NUR ---
Assess due to class III obesity BMI 42. Pt sleeping, had rough evening so did not awaken. RN reports appetite as good. BG under control. Low nutrition risk
[2018-08-20 12:00] VITALS: BP 149/97
[2018-08-20 16:00] VITALS: BP 169/95
--- NOTE | 2018-08-20 16:40 | NUR ---
ASSUMED PATIENT CARE THIS AM. PATIENT LYING IN BED, A&O. NC @ 3L. PATIENT DROWSY THIS AM, MORE ALERT THIS AFTERNOON AFTER NAP. TOLERATING DIET. PATIENT INCONTINENT OF BOWEL AND BLADDER. FREQUENT MONITORING. PATIENT ABLE TO CALL OUT IF SHE HAS INCONTINENT EPISODE. FALL RISK.
[2018-08-20 19:21] VITALS: BP 164/85
--- NOTE | 2018-08-21 04:03 | NUR ---
ASSUMED CARE 1900. PT AO X 4 MODERATELY DOWSY , FALLS ASLEEP BETWEEN CARES. PT C/O DIFFICULTY BREATHING, COURSE/WET SOUNDING UPPER RESPIRATORY. O2 STATS > 95. ON 2L OF O2. NOTIFIED DR THOMAS, ORDERED LASIX 40MG Q12H AND 40 MEQ POTASSIUM TID. WILL CONTINUE TO MONITOR AND FOLLOW POC.
[2018-08-21 04:11] LABS: CALCIUM 8.7 mg/dL (8.5-10.1); CREATININE 0.5 mg/dL (0.6-1.0); MAGNESIUM 1.6 mg/dL (1.8-2.4); POTASSIUM 3.5 mmol/L (3.5-5.1)
[2018-08-21 04:23] LABS: HEMATOCRIT 36.3 % (37.0-47.0); HEMOGLOBIN 11.9 gm/dL (12.0-15.0); MCH 28.7 pg (26.0-34.0); MCHC 32.8 g/dL (28.0-37.0); MCV 87.6 fL (80.0-100.0); PLATELET COUNT 221 thou/uL (150-400); RBC 4.15 mil/uL (4.20-5.00); RDW 15.6 % (10.5-14.5); WBC 6.3 thou/uL (4.0-11.0)
[2018-08-21 05:14] LABS: ABSOLUTE NEUTROPHILS 3.8 thou/uL (1.4-8.2)
[2018-08-21 05:15] LABS: PLATELET ESTIMATE NORMAL
[2018-08-21 05:57] VITALS: BP 145/79
[2018-08-21 08:00] VITALS: BP 152/94
--- NOTE | 2018-08-21 11:30 | 2DMMODE ---
[facility] [address] [place] [address] 2 D/M-MODE ECHOCARDIOGRAM Name: MAXIM SETH YANELIS Room #: 219-P ADM IN M.R.#: [id number] Admission: 08/16/18 Attend Phys: Mallory Thorne MD Discharge: Date of : 49 Date of Service: 08/21/18 1130 Report #: [id number] THIS REPORT FOR: //name// APPROVED REPORT Study performed: 08/21/2018 09:59:11 EXAM: Comprehensive 2D, Doppler, and color-flow Echocardiogram Patient Location: Bedside Room #: 219 Status: routine BSA: 2.23 HR: 90 bpm BP: 122/94 mmHg Rhythm: Tachycardia Other Information Study Quality: Adequate Indications Congestive Heart Failure Diabetes Hypertension/HDD 2D Dimensions IVSd: 12.19 (7-11mm) LVOT Diam: 20.26 (18-24mm) LVDd: 42.30 mm PWd: 13.12 (7-11mm) Ascending Ao: 29.08 (22-36mm) LVDs: 29.18 (25-40mm) Aortic Root: 23.14 mm IVC: 17.00 mm Aortic Valve AoV Peak Oracio.: 1.39 m/s AO Peak Gr.: 7.70 mmHg LVOT Max P.36 mmHg LVOT Max V: 1.04 m/s JOSHUA Vmax: 2.42 cm2 Pulmonary Valve PV Peak Oracio.: 1.02 m/s PV Peak Gr.: 4.13 mmHg Left Ventricle The left ventricle is normal size. There is normal LV segmental wall motion. Mild concentric left ventricular hypertrophy. The left ventricular systolic function is normal. The left ventricular ejection fraction is within the normal range. LVEF is 60-65%. Grade I [facility] [address] [place] [address] 2 D/M-MODE ECHOCARDIOGRAM Name: DORINDAMAXIM HILARIO Room #: 219-P ADM IN M.R.#: [id number] Admission: 08/16/18 Attend Phys: Mallory Thorne MD Discharge: Date of : 49 Date of Service: 08/21/18 1130 Report #: [id number] - abnormal relaxation pattern. Right Ventricle The right ventricle is normal size. The right ventricular systolic function is normal. Atria The left atrium size is normal. The right atrium size is normal. Aortic Valve The aortic valve is normal in structure. No aortic regurgitation is present. There is no aortic valvular stenosis. Mitral Valve The mitral valve is normal in structure. There is no mitral valve regurgitation noted. No evidence of mitral valve stenosis. Tricuspid Valve The tricuspid valve is normal in structure. There is no tricuspid valve regurgitation noted. Pulmonic Valve The pulmonary valve is normal in structure. There is no pulmonic valvular regurgitation. Great Vessels The aortic root is normal in size. IVC is normal in size and collapses >50% with inspiration. Pericardium There is no pericardial effusion. <Conclusion> The left ventricle is normal size. Mild concentric left ventricular hypertrophy. The left ventricular systolic function is normal. Grade I - abnormal relaxation pattern. The right ventricle is normal size. The left atrium size is normal. The aortic valve is normal in structure. [facility] [address] [place] [address] 2 D/M-MODE ECHOCARDIOGRAM Name: MAXIM SETH Room #: 219-P [facility] IN M.R.#: [id number] Admission: 08/16/18 Attend Phys: Mallory Thorne MD Discharge: Date of : 49 Date of Service: 08/21/181129 Report #: [id number] There is no mitral valve regurgitation noted. There is no tricuspid valve regurgitation noted. <ELECTRONICALLY SIGNED> By: Sam Villeda MD 08/21/181129 29 29 Sam Villeda MD /INF
[2018-08-21 12:25] VITALS: BP 155/101
--- NOTE | 2018-08-21 13:12 | NUR ---
Updated [facility] plan return once stable.
[2018-08-21 17:00] VITALS: BP 174/100
--- NOTE | 2018-08-21 17:49 | NUR ---
ASSUMED PATIENT CARE THIS AM. PATIENT LYING IN BED, A&OX4. NC @ 2L. PATIENT UP WITH SANJANA TO CHAIR FOR 3-4 HOURS THIS MORNING. PATIENT TOLERATED WELL. REPOSITION IN BED FREQUENTLY FOR COMFORT. PAIN MANAGED WITH MEDICATION. HOME MEDICATION RESUMED TO HELP MANAGE PATIENTS CHRONIC RHEUMATOID ARTHRITIS PAIN. TOLERATING DIET. NO COMPLAINTS OF SHORTNESS OF BREATH FOR THIS RN. FALL RISK. WOODARD CATHETER PLACED THIS AM, PATENT AND SECURE.
[2018-08-21 19:25] VITALS: BP 150/112
--- NOTE | 2018-08-21 19:27 | HC ---
[facility] [place] [address] CONSULTATION Name: MAXIM SETH Room #: 219-P ADM IN M.R.#: [id number] Admission: 08/16/18 Attend Phys: Mallory Thorne MD Discharge: Date of : 49 Report #: [id number] THIS REPORT FOR: //name// CC: Mallory Thorne TYPE OF REPORT: Pulmonary consultation. REFERRING PHYSICIAN: Mallory Thorne M.D. REASON FOR REFERRAL: Progressive dyspnea. HISTORY OF PRESENT ILLNESS: The patient is a 72-year-old white female who was admitted on 08/16/2018 for dyspnea. She was felt to have pneumonia. Since admission, she continues to have trouble with dyspnea, chest congestion and cough. A Pulmonary consultation was requested. The patient states that she is somewhat better earlier today following a dose of diuretics. She still feels congested. Otherwise, denies any chest pain. She is not able to bring up much sputum. The color of the sputum is said to be light color, not purulent. Note that the patient is a poor historian. PAST MEDICAL HISTORY: Notable for long history of rheumatoid arthritis, with arthritic changes in the extremities, hypertension, hypercholesterolemia, diabetes mellitus type 2, chronic back pain, benign adrenal gland tumor, gastroesophageal reflux disease, anxiety disorder/insomnia, hypothyroidism and overactive bladder disease. PAST SURGICAL HISTORY: Status post left AKA for nonhealing wounds following a left distal femur fracture and hysterectomy. ALLERGIES: Multiple including ETHCHLORVYNOL; FLURAZEPAM; LORAZEPAM; PROPOXYPHENE; SULFA, which causes pruritus; TRIMETHOPRIM, reactions not specified and NAPROSYN, causes GI upset. HOME MEDICATIONS: List reviewed including Celebrex, Wellbutrin, Glucophage, Flomax, Caltrate, multivitamins, hydrocodone, Lasix, metolazone, Xeljanz, Topamax, Lipitor, MiraLax, gabapentin, zinc oxide, Pepcid, Senokot, Claritin, Requip, aspirin, Zestril, magnesium oxide, Zofran and Imodium. CURRENT HOSPITAL MEDICATIONS: Reviewed in the MAR. FAMILY HISTORY: Noncontributory. SOCIAL HISTORY: She resides in a [facility]. No past history of tobacco or alcohol use. [address] [address] CONSULTATION Name: MAXIM SETH Room #: 219-P [facility] IN .R.#: [id number] Admission: 08/16/18 Attend Phys: Mallory Thorne MD Discharge: Date of : 49 Report #: [id number] REVIEW OF SYSTEMS: Notable for sedentary state due to rheumatoid arthritis, left AKA, she gets around with a wheelchair. Otherwise, 10-point system review negative. PHYSICAL EXAMINATION: GENERAL: She is awake, alert, appears moderately dyspneic. VITAL SIGNS: Temperature is 97 degrees Fahrenheit, pulse is 96, respiratory rate is 22, blood pressure 150/97 mmHg and saturation 92%. HEENT: Normocephalic and atraumatic. NECK: Supple, without any lymphadenopathy or thyromegaly. CHEST: Breath sounds are good bilaterally without any rales or wheezes. CARDIOVASCULAR: Normal S1 and S2. There is no murmur or gallop. There is no JVD. There is no carotid bruit. Pulses are 2+/4+ bilaterally. ABDOMEN: Soft and nontender. No organomegaly or masses felt. GENITOURINARY: Deferred. RECTAL: Deferred. EXTREMITIES: Trace edema in the right leg, status post left AKA. RADIOLOGICAL DATA: Chest x-ray shows small lung volumes, no obvious infiltrates or effusion. LABORATORY DATA: Electrolytes are normal. Creatinine is normal. WBC 6800 and hemoglobin 12.0. No evidence of bandemia. IMPRESSION: 1. Persistent hypoxia, dyspnea in this 72-year-old white female. Etiology probably related to inability to clear secretions, possible heart failure. Cannot rule out possibility of recurrent infectious process. 2. Acute hypoxic respiratory failure due to above. 3. Possible nosocomial pneumonia, agree with broad-spectrum antibiotics. 4. Rheumatoid arthritis, chronic pain. 5. Diabetes mellitus type 2. 6. Hypertension. 7. Status post left above-knee amputation with past history of left femur fracture, resulting in a relatively sedentary state over the last few years. 8. Progressive weakness and debility. RECOMMENDATIONS: Agree with trial of Lasix. We would recommend chest physiotherapy, respirations secretions clearance. Complete course of antibiotics approximately 7-10 day course. Follow up chest x-ray. Difficult problem in this patient with progressive weakness and debility due to sedentary state and multiple comorbid conditions. DVT and GI prophylaxis recommended. [address] [address] CONSULTATION Name: DORINDAMAXIM YANELIS Room #: 219-P ADM IN M.R.#: [id number] Admission: 08/16/18 Attend Phys: Mallory Thorne MD Discharge: Date of : 49 Report #: [id number] Thank you for this consultation. <ELECTRONICALLY SIGNED> By: Deshaun Velez MD 08/21/18 [id number] Deshaun Velez MD /juve
[2018-08-22 00:23] VITALS: BP 149/87
[2018-08-22 04:41] VITALS: BP 167/96
[2018-08-22 05:04] LABS: ABSOLUTE NEUTROPHILS 4.5 thou/uL (1.4-8.2); BASOPHILS 0.3 % (0.0-2.0); EOSINOPHILS 3.2 % (0.0-3.0); HEMATOCRIT 39.6 % (37.0-47.0); HEMOGLOBIN 12.8 gm/dL (12.0-15.0); LYMPHOCYTES 29.1 % (24.0-44.0); MCH 28.2 pg (26.0-34.0); MCHC 32.3 g/dL (28.0-37.0); MCV 87.3 fL (80.0-100.0); MONOCYTES 9.9 % (1.0-8.0); POLYS 57.5 % (36.0-66.0); RBC 4.54 mil/uL (4.20-5.00); RDW 15.7 % (10.5-14.5); WBC 7.8 thou/uL (4.0-11.0)
[2018-08-22 05:06] LABS: CALCIUM 9.3 mg/dL (8.5-10.1); CREATININE 0.6 mg/dL (0.6-1.0); MAGNESIUM 1.7 mg/dL (1.8-2.4); POTASSIUM 3.9 mmol/L (3.5-5.1)
[2018-08-22 05:08] LABS: PLATELET COUNT 318 thou/uL (150-400)
--- NOTE | 2018-08-22 06:11 | NUR ---
PT. REQUESTED SLEEP MEDICATION AND VOLATREN 1%; PHYSICIAN NOTIFIED; ORDERS TAKEN. ABLE TO REST MOST OF THE NIGHT; EARLY ON THE MORNING PRN BP GIVEN; ASSESSMENT CHARGED; FOLLOWING POC.
[2018-08-22 08:28] VITALS: BP 146/94
[2018-08-22 14:05] VITALS: BP 144/106
[2018-08-22 15:48] VITALS: BP 160/91
--- NOTE | 2018-08-22 15:49 | NUR ---
AOX4. SOA WITH EXERTION, REMAINS ON 2L NASAL CANNULA. PATIENT REPORTS PAIN FROM RHEUMATOID ARTHRITIS & HEADACHE. REPORTS PARTIAL MANAGEMENT WITH MEDICATION ORDERED. PATIENT REMAINS IN BED THIS SHIFT, ATTEMPTS TO ASSIST WITH TURNING MINIMALLY. WOODARD PATENT & SECURED IN PLACE. OUTPUT INCREASED WITH CLEAR PALE YELLOW URINE. FALL PRECAUTIONS IN PLACE, CALLS FOR ASSIST APPROPRIATELY.
[2018-08-22 19:30] VITALS: BP 149/109
[2018-08-23] VITALS (11 sets, daily range): BP systolic 140–183; BP diastolic 71–116
--- NOTE | 2018-08-23 05:43 | NUR ---
PT. C/O PAIN DURING THE NIGHT; ABLE TO REST FOR A FEW HOURS; BED BATH GIVEN EARLY ON THE NIGHT; O2 INCREASED TO 3.5; ASSESSMENT CHARGED; FOLLOWING POC.
--- NOTE | 2018-08-23 10:13 | NUR ---
NOTIFIED ZEE AT [facility] ANTICIPATE DC TODAY OR TOMORROW AND PT. WILL RETURN TO LTC. DCP TO FOLLOW.
--- NOTE | 2018-08-23 20:16 | NUR ---
AT CHANGE OF SHIFT PT PLACED ON LIFT TO GO BACK TO BED. LEG SLIPPED DOWN DUE TO LARGE JELLY CLEAR BM AND PT WAS LOWERED TO THE GROUND. PT COMPLAINED OF R KNEE PAIN. ICE PLACED ON KNEE. PAIN MEDS GIVEN PER NOC RN. PT BACK IN BED. CALLED, ORDERS GIVEN FOR XRAY. BOTH SONS NOTIFIED.
[2018-08-24] VITALS (44 sets, daily range): BP systolic 76–132; BP diastolic 46–83
[2018-08-24 05:59] LABS: HEMATOCRIT 34.7 % (37.0-47.0); MCH 28.1 pg (26.0-34.0); MCHC 31.8 g/dL (28.0-37.0); MCV 88.2 fL (80.0-100.0); RBC 3.93 mil/uL (4.20-5.00); RDW 15.5 % (10.5-14.5)
[2018-08-24 06:10] LABS: CREATININE 0.9 mg/dL (0.6-1.0); POTASSIUM 5.1 mmol/L (3.5-5.1)
--- NOTE | 2018-08-24 08:43 | NUR ---
RAPID RESPONSE CALLED FOR HYPOTENSION AND C/O SHORTNESS OF BREATH. SEE FLOW SHEET IN INTERVENTIONS. ROOM 219.
--- NOTE | 2018-08-24 08:53 | NUR ---
ASSESSMENT CHARGED; PT. ON BED C/O R. HIP PAIN; PRN PAIN MEDICATION GIVEN; VS STABLE; A0X4; FALL PRECAUTIONS ON PLACE; C/O R. HIP PAIN DURING THE NIGHT; PRN MEDICATION GIVEN PER ORDER; POSITIONED OVER L. SIDE; SCHEDULED SLEEP MEDICATION GIVEN; ABLE TO REST AFTER MIDGNIGHT; AT 7AM PT'S. SBP BELOW; PALE; ST "I FEEL FUNNY; I CAN'T HEAR WITH MY L. SIDE EAR; MY EYE IS CLOSING"; FUROSEMIDE NOT GIVEN; NEURO ASSESSMENT PERFORMED; WNL; ST. "SOMETHING IS NOT RIGHT", RAPID RESPOND CALLED.
[2018-08-24 10:57] LABS: ABSOLUTE NEUTROPHILS 12.4 thou/uL (1.4-8.2); BASOPHILS 0.2 % (0.0-2.0); EOSINOPHILS 1.6 % (0.0-3.0); HEMOGLOBIN 9.8 gm/dL (12.0-15.0); LYMPHOCYTES 14.3 % (24.0-44.0); MCH 28.8 pg (26.0-34.0); MCHC 32.6 g/dL (28.0-37.0); MCV 88.3 fL (80.0-100.0); MONOCYTES 5.8 % (1.0-8.0); PLATELET COUNT 250 thou/uL (150-400); POLYS 78.1 % (36.0-66.0); RBC 3.39 mil/uL (4.20-5.00); RDW 15.8 % (10.5-14.5); WBC 15.8 thou/uL (4.0-11.0)
--- NOTE | 2018-08-24 11:15 | NUR ---
CARE ASSUMED AFTER REPORT FROM BLANCA MONTOYA - RAPID RESPONSE CALLED RELATED TO LOW BP - KAM BULK MAIL TECHNICIAN UPDATED AND ORDERS RECEIVED
--- NOTE | 2018-08-24 12:46 | NUR ---
RIGHT FEMUR FX AND POSSIBLE SEPSIS. DENTAL BILLING SPECIALIST CALLED THIS AM. ORTHO TO SEE. DR. KAM BILL ROUNDED AND PER NOTE, HOLD ON HIP SURGEERY R/T POSSIBLE SEPSIS. UPDATE TO [facility]. NO WEEKEND PLANNED.
[2018-08-24 12:57] LABS: BE(vivo) -2.5 mmol/L (-2 to +3); HCO3 23.8 mmol/L (22.0-26.0); PO2 68.8 mmHg (80.0-100.0); sO2 92.1 % (92.0-98.0)
[2018-08-24 12:58] LABS: pH 7.313 (7.360-7.450)
--- NOTE | 2018-08-24 13:41 | EKG ---
[address] [address] ELECTROCARDIOGRAM REPORT Name: MAXIM SETH Room #: 219-P ADM IN M.R.#: [id number] Admission: 08/16/18 Attend Phys: Mallory Thorne MD Discharge: Date of : 49 Report #: [id number] THIS REPORT FOR: //name// [facility] Test Date: 2018-08-24 Test Time: 08:17:15 Pat Name: MAXIM SETH Department: Room: 219 P Gender: F Die Caster: YANNICK : 1945 Requested By: Mallory Thorne Order Number: [id number] MD: Polo Cano Measurements Intervals [place] Rate: 90 P: -47 AR: 149 QRS: -26 QRSD: 95 T: 72 QT: 382 QTc: 468 Interpretive Statements Sinus rhythm Probable left ventricular hypertrophy Compared to ECG 08/16/2018 18:11:11 Electronically Signed On 08-24-2018 13:41:27 SAUTE CHEF by Polo Cano [email or web address] <ELECTRONICALLY SIGNED> By: Polo Cano MD 08/24/18 1341 6 6 Polo Cano MD /GRIS
--- NOTE | 2018-08-24 14:32 | NUR ---
PT REMAINS A/O - DR. VEGAS ROUNDED /C ORDERS GIVEN TO TRANSFER PT TO ICU - PENDING SURGERY ON HOLD UNTIL PT CLEARED MEDICALLY PER ORTHO NURSE - SON AT BEDSIDE DURING TRANSFER OF PT TO ICU - BED 240 - DR. THOMAS UPDATED ON TRANSFER OF PT - REPORT CALLED TO DEBRA
--- NOTE | 2018-08-24 17:30 | NUR ---
PT DR. VEGAS UPDATED ON PTS LABS AND CHEST XRAY AT THIS POINT NO NEW ORDERS RECEIVED. LUNGS ARE CLEAR TO WHEEZES NOTED BILATERAL AND COARSE. ON O2 AT 5 LITERS NASAL CANULA O2 SATURATION IS 91 PERCENT. FAMILY PRESENT AT BEDSIDE TODAY FOR SUPPORT. PT WATCHING TV ON WITH REMOTE. PAIN MEDS GIVEN NEEDED FOR HIP PAIN ORDERED. WILL CONTINUE TO ASSESS AND MONITOR PER NURSING
[2018-08-24 22:37] LABS: URINE BILIRUBIN NEGATIVE (Negative); URINE BLOOD 3+ (Negative); URINE CLARITY HAZY; URINE COLOR YELLOW; URINE GLUCOSE-RANDOM* NEGATIVE (Negative); URINE KETONES NEGATIVE (Negative); URINE LEUKOCYTES-REFLEX 1+ (Negative); URINE NITRITE-REFLEX NEGATIVE (Negative); URINE PROTEIN (DIPSTICK) 1+ (Negative); URINE SPECIFIC GRAVITY 1.025 (1.005-1.035); URINE UROBILINOGEN 0.2 E.U./dl (0.2-1.0)
[2018-08-24 22:46] LABS: CASTS None Seen /LPF (None Seen); MUCUS 0-3 Light strn/LPF (None Seen); SQUAMOUS 0-3 Few /LPF (0-3)
[2018-08-24 22:47] LABS: URINE RBC >20 Many /HPF (0-2)
--- NOTE | 2018-08-24 22:47 | NUR ---
PT IS ALERT AND ORIENTED X 4. STATES THAT SHE SUFFERS FROM CHRONIC PAIN THAT IS PRIMARILY FROM HER ARTHRITIS. SHE ALSO STATES THAT HER RIGHT HIP IS HURTING AND SHE IS HAVING A HARD TIME FINDING A COMFORTABLE POSITION. THE PATIENT STATES THAT SHE TAKES SCHEDULED PAIN MEDICATION AT THE FACILITY FOR HER ARTHRITIC PAIN. SHE ALSO STATES THAT SHE HAS HAD MULTIPLE FRACTURES IN THE PAST. THE PATIENT BEGAN TO REQUIRE AN INCREASE IN O2 TO MAINTAIN HER O2 LEVEL ABOVE 90%. THE PATIENT IS CONGESTED AND ALTHOUGH SHE IS ABLE TO COUGH, SHE IS NOT ABLE TO CLEAR HER CONGESTION. RT WAS CALLED FOR A RT TREATMENT. AFTER THE TREATMENT, DR VEGAS WAS CALLED. THE PATIENT WAS STARTED ON A BIPAP. ORDERED SETTINGS: 12/6, RR 16, FiO2 60% TO KEEP O2SAT ABOVE 90%. PT VOICES UNDERSTANDING AND REASON FOR BIPAP. CONTINUING TO TURN THE PATIENT Q2H TOLERATED. WILL CONTINUE TO MONITOR.
[2018-08-24 22:48] LABS: CALCIUM OXALATE >10 Many /LPF (None Seen)
[2018-08-24 23:20] LABS: BE(vivo) -2.9 mmol/L (-2 to +3); HCO3 23.2 mmol/L (22.0-26.0); PCO2 45.6 mmHg (35.0-45.0); PO2 81.3 mmHg (80.0-100.0); sO2 95.1 % (92.0-98.0)
[2018-08-24 23:21] LABS: pH 7.324 (7.360-7.450)
--- NOTE | 2018-08-24 23:41 | NUR ---
CALLED PT'S SON, LASHAY TO NOTIFY HIM THAT THE PATIENT IS REQUIRING A BIPAP MASK. PT SEEMS COMFORTABLE AND IS RESTING. O2 SAT MAINTAINED. DR VEGAS NOTIFIED OF CRITICAL VALUE. BIPAP SETTINGS CHANGED TO 14/6. CXR IN AM. RESTART LOVENOX IN AM. ALSO ORDERED - [place].S. OF BILATERAL LEGS. WILL CONTINUE TO MONITOR.
[2018-08-25] VITALS (29 sets, daily range): BP systolic 96–142; BP diastolic 56–89
[2018-08-25 05:25] LABS: CALCIUM 8.6 mg/dL (8.5-10.1); CREATININE 0.7 mg/dL (0.6-1.0); POTASSIUM 4.7 mmol/L (3.5-5.1)
[2018-08-25 05:30] LABS: ABSOLUTE NEUTROPHILS 14.3 thou/uL (1.4-8.2); BASOPHILS 0.2 % (0.0-2.0); HEMATOCRIT 29.7 % (37.0-47.0); HEMOGLOBIN 9.7 gm/dL (12.0-15.0); LYMPHOCYTES 7.6 % (24.0-44.0); MCHC 32.5 g/dL (28.0-37.0); MCV 89.2 fL (80.0-100.0); MONOCYTES 5.7 % (1.0-8.0); PLATELET COUNT 212 thou/uL (150-400); POLYS 79.5 % (36.0-66.0); RBC 3.33 mil/uL (4.20-5.00); RDW 15.6 % (10.5-14.5); WBC 17.9 thou/uL (4.0-11.0)
--- NOTE | 2018-08-25 19:54 | NUR ---
ASSUMED CARE OF PATIENT AT 1600. A&O X4. COMPLAINING OF HIP PAIN. GIVEN MORPHINE X1 WITH GOOD RELIEF OF PAIN. VSS. TOLERATING PO WELL. REPORT GIVEN TO CENTRAL OFFICE TROUBLE SHOOTER RN.
--- NOTE | 2018-08-25 20:36 | NUR ---
ASSUMED CARE OF PT AT 0700 THIS SHIFT. PT HAS BEEN COOPERATIVE, HAS HAD CONSTANT PAIN IN HER RIGHT HIP. PT WAS ON BIPAP THIS MORNING AND VERY DROWSY, HOWEVER PT WAS PLACED ON NASAL CANNULA AND SATs HAVE BEEN STAYING ABOVE 90% THIS SHIFT. ASSESSMENTS ARE DOCUMENTED. PT HAS HAD VISITORS THIS SHIFT, EDUCATION WAS PROVIDED. PLAN OF CARE IS TO CONTINUE TO MONITOR CLOSELY THIS SHIFT.
[2018-08-26] VITALS (29 sets, daily range): BP systolic 111–163; BP diastolic 53–94
[2018-08-26 05:34] LABS: HEMATOCRIT 25.6 % (37.0-47.0); HEMOGLOBIN 8.3 gm/dL (12.0-15.0); MCH 28.7 pg (26.0-34.0); MCHC 32.3 g/dL (28.0-37.0); MCV 88.8 fL (80.0-100.0); RBC 2.88 mil/uL (4.20-5.00); RDW 15.3 % (10.5-14.5); WBC 15.1 thou/uL (4.0-11.0)
[2018-08-26 05:43] LABS: CALCIUM 8.6 mg/dL (8.5-10.1); CREATININE 0.5 mg/dL (0.6-1.0); POTASSIUM 4.3 mmol/L (3.5-5.1)
--- NOTE | 2018-08-26 06:55 | NUR ---
PT MAINTAINED ADEQUATE SATS THROUGHOUT THE NIGHT ON 3 TO 4L O2 BY NASAL CANNULA. RIGHT HIP PAIN MANAGED BY PO MEDS, REPOSITIONING DONE PT TOLERARTED, UOP ADEQUATE, NO BM, NO ACUTE CHANGES OVERNIGHT.
--- NOTE | 2018-08-26 19:26 | NUR ---
ASSUMED CARE OF PT AT 0700 THIS SHIFT. PT HAS BEEN COOPERATIVE, HAS HAD PAIN IN HER RIGHT HIP, BUT MOSTLY CONTROLLED WITH MEDICATION. PT WORE BIPAP FOR A FEW HOURS DURING A NAP, TOLERATED IT WELL. PT HAS BEEN CLEARED BY DR VEGAS FOR HIP SURGER - SEE DR VEGAS'S NOTE. PT IS ANXIOUS, BUT IS ON BOARD WITH THE PLAN. ASSESSMENTS ARE DOCUMENTED. PT HAS HAD VISITORS THIS SHIFT, EDUCATION WAS PROVIDED. PLAN OF CARE IS TO CONTINUE TO MONITOR PT CLOSELY AT THIS TIME.
[2018-08-27] VITALS (42 sets, daily range): BP systolic 101–180; BP diastolic 49–122
[2018-08-27 05:35] LABS: HEMATOCRIT 23.4 % (37.0-47.0); HEMOGLOBIN 7.7 gm/dL (12.0-15.0); MCH 29.3 pg (26.0-34.0); MCHC 32.9 g/dL (28.0-37.0); MCV 89.1 fL (80.0-100.0); PLATELET COUNT 215 thou/uL (150-400); RBC 2.62 mil/uL (4.20-5.00); RDW 15.4 % (10.5-14.5); WBC 15.5 thou/uL (4.0-11.0)
[2018-08-27 05:48] LABS: CALCIUM 8.5 mg/dL (8.5-10.1); CREATININE 0.5 mg/dL (0.6-1.0); MAGNESIUM 1.7 mg/dL (1.8-2.4); POTASSIUM 3.6 mmol/L (3.5-5.1)
--- NOTE | 2018-08-27 06:01 | NUR ---
END OF SHIFT SUMMARY: Pt has been stable this shift. Monitor sinus rhythm. Had to increase O2 from 3 L to 5 L during night as pt desaturates to 87-88% when sleeping. Had clear mucous stool after ducolax suppository given. Pt intially c/o of feeling bloated and "gas pain". Feeling better and abdomen less distended and firm post suppository. Urine output marginal, only 300 cc for this shift. Pt NPO since midnight for possible surgery on right hip today.
[2018-08-27 06:51] LABS: ABSOLUTE NEUTROPHILS 11.2 thou/uL (1.4-8.2)
[2018-08-27 06:52] LABS: PLATELET ESTIMATE NORMAL
--- NOTE | 2018-08-27 08:08 | NUR ---
PT TRANSFERRED TO ICU; ON HOLD FOR OCCUPATIONAL THERAPY DUE TO CHANGE IN STATUS; NEED NEW PHYSICIAN ORDERS WHEN/IF APPROPRIATE.
--- NOTE | 2018-08-27 14:45 | NUR ---
PT TO OR TODAY FOR SURGICAL CORRECTION OF FEMUR FRACTURE WITH PLANNED POST OP RTURN TO ICU. UPDATE TO [facility] , PT LIVES IN LTC AT FACILITY.
--- NOTE | 2018-08-27 18:45 | NUR ---
assumed care of pt at 0700, pt is a/o times. c/o pain to fingers and right hip. vss. pt went to surger and came back with no resp issues. con on 2l nc. will cont to monitor
[2018-08-28] VITALS (69 sets, daily range): BP systolic 89–186; BP diastolic 35–100
--- NOTE | 2018-08-28 03:10 | NUR ---
ASSESSMENTS CHARTED. PATIENT APPROPRIATE, HR80'S TO 100'S SINUS. NEEDING 4 LITERS OXYGEN WHEN SLEEPING. GOOD COUGH EFFORT, WHITE FROTHY SPUTUM. PATIENT ENJOYS MELTED POPCICLES. PATIENT REQUESTED SLEEPING PILL OR MELATONIN. CALLED DR. VEGAS DUE TO HER BREATHING ISSUES. HE SAID NO TO SLEEPING PILL, BUT OK TO MELATONIN. PLAN OF CARE TO INCLUDE PHYSICAL THERAPY AND RECOVERY FROM SURGERY.
[2018-08-28 04:23] LABS: MCH 28.9 pg (26.0-34.0); MCHC 32.4 g/dL (28.0-37.0); RDW 15.5 % (10.5-14.5)
[2018-08-28 04:25] LABS: ABSOLUTE NEUTROPHILS 8.8 thou/uL (1.4-8.2); BASOPHILS 0.1 % (0.0-2.0); EOSINOPHILS 4.5 % (0.0-3.0); LYMPHOCYTES 15.1 % (24.0-44.0); MCV 89.3 fL (80.0-100.0); MONOCYTES 7.1 % (1.0-8.0); POLYS 73.2 % (36.0-66.0); RBC 2.12 mil/uL (4.20-5.00)
[2018-08-28 04:31] LABS: CREATININE 0.5 mg/dL (0.6-1.0); POTASSIUM 3.9 mmol/L (3.5-5.1)
[2018-08-28 04:34] LABS: HEMATOCRIT 18.9 % (37.0-47.0); HEMOGLOBIN 6.1 gm/dL (12.0-15.0); PLATELET COUNT 311 thou/uL (150-400)
--- NOTE | 2018-08-28 09:11 | NUR ---
Followup: s/p surgical intervention for hip fracture. Clear liquid diet and needed transfusion for low Hgb. Anticipate diet readvance today. Wts stable. Remains low nutrition risk
--- NOTE | 2018-08-28 10:28 | NUR ---
FAXED CLINICAL UPDATE TO [facility]ES SPOKE WITH JIAN IN ADM, AND SHE RECEIVED UPDATE AND THEY WOULD BE ABLE TO EVAL FOR SKILLED ONCE PT. DISCHARGES AT FACILITY WILL FAX THERAPY NOTES ONCE AVAILABLE. DCP TO FOLLOW.
[2018-08-28 16:11] LABS: ABSOLUTE NEUTROPHILS 8.2 thou/uL (1.4-8.2); BASOPHILS 0.5 % (0.0-2.0); EOSINOPHILS 7.7 % (0.0-3.0); HEMATOCRIT 27.1 % (37.0-47.0); LYMPHOCYTES 15.9 % (24.0-44.0); MCH 28.8 pg (26.0-34.0); MCHC 32.9 g/dL (28.0-37.0); MCV 87.5 fL (80.0-100.0); MONOCYTES 7.6 % (1.0-8.0); PLATELET COUNT 316 thou/uL (150-400); POLYS 68.3 % (36.0-66.0); RBC 3.09 mil/uL (4.20-5.00); RDW 16.1 % (10.5-14.5)
[2018-08-28 16:12] LABS: HEMOGLOBIN 8.9 gm/dL (12.0-15.0)
--- NOTE | 2018-08-28 21:25 | NUR ---
PT ARRIVED UNIT AT ABOUT 2030 FROM ICU. PT STABLE, A/OX4, VITAL SIGNS STABLE. PT COMPLAINED OF RIGHT HIP PAIN. PT WAS GIVEN PAIN MEDICATION IN ICU PRIOR TO TRANSFERING TO UNIT. 2100 MEDICATIONS GIVEN SCHEDULED INCLUDING SCHEDULED MORPHINE. PRUNE JUICE GIVEN TO PT PER REQUEST TO AID WITH HAVING A BM. PT CLOSE TO NURSING STATION FOR CLOSE MONITORING. FALL PRECAUTIONS IN PLACE, CALL LIGHT AND PERSONAL ITEMS WITHIN REACH. WILL CONTINUE TO CLOSELY MONITOR.
[2018-08-29] VITALS (9 sets, daily range): BP systolic 108–187; BP diastolic 56–83
--- NOTE | 2018-08-29 03:39 | NUR ---
PT RESTED WELL THROUGH THE NIGHT. PAIN IN RIGHT HIP ADEQAUTELY MANAGED WITH PAIN MEDICATION. Q2-3HR TURNS. PROGRESSING TOWARD PLAN OF CARE. WILL CONTINUE TO MONITOR.
[2018-08-29 04:22] LABS: CALCIUM 8.2 mg/dL (8.5-10.1); CREATININE 0.4 mg/dL (0.6-1.0)
[2018-08-29 05:43] LABS: ABSOLUTE NEUTROPHILS 8.6 thou/uL (1.4-8.2); BASOPHILS 0.7 % (0.0-2.0); EOSINOPHILS 7.4 % (0.0-3.0); HEMATOCRIT 25.8 % (37.0-47.0); HEMOGLOBIN 8.6 gm/dL (12.0-15.0); LYMPHOCYTES 13.9 % (24.0-44.0); MCH 29.7 pg (26.0-34.0); MCHC 33.5 g/dL (28.0-37.0); MCV 88.6 fL (80.0-100.0); PLATELET COUNT 314 thou/uL (150-400); RBC 2.91 mil/uL (4.20-5.00); RDW 16.1 % (10.5-14.5); WBC 12.7 thou/uL (4.0-11.0)
[2018-08-29] MEDS ORDERED: ENOXAPARIN40 MG/0.1 SUBQ (07:19)
--- NOTE | 2018-08-29 12:37 | NUR ---
PATIENT WITH ORDERS TO DC TO SKILLED UNIT OF [facility] THEY ARE IN PROCESS OF OBTAINING AUTH. UPDATED PATIENT AND SON MERRILL.
--- NOTE | 2018-08-29 16:22 | NUR ---
did not rec auth for skilled rehab care for patient from [facility]. updated patient, phys, son via voicemail to [facility] and RN.
--- NOTE | 2018-08-29 17:38 | NUR ---
ASSESSMENT DOCUMENTED. VSS. WOODARD CATHETER D/C. TURNED AND REPOSITIONED Q 2 HOURS AND NEEDED. SURGICAL INCISION C/D/I. NO CONCERNS AT THIS TIME. PROGRESSING WELL TOWARD DISCHARGE GOAL.
[2018-08-30 03:56] VITALS: BP 108/68
--- NOTE | 2018-08-30 04:01 | NUR ---
ASSUMED PT CARE AT 1900. PT A/OX4, VITAL SIGNS STABLE, ASSESSMENT CHARTED. NO COMPLAINTS OF CHEST PAIN. RIGHT HIP PAIN ADEQAUTELY MANAGED WITH MEDICATION. PT RESTED WELL THROUGH THE NIGHT. PROGRESSING TOWARD PLAN OF CARE. POSSIBLE DISCHARGE IN AM. WILL CONTINUE TO CLOSELY MONITOR.
[2018-08-30 07:20] VITALS: BP 112/60
[2018-08-30 11:20] VITALS: BP 115/69
--- NOTE | 2018-08-30 13:42 | NUR ---
PER [facility] INS DENIED AUTH FOR SKILLED. PATIENT TO DC TO [facility] TODAY AT 1500 VIA [facility] ARRANGING TRANSPORT. SON LASHAY COOK RN AND DC AUTO HEATER MECHANIC TO FAX ORDERS NO FURTHER NEEDS
--- NOTE | 2018-08-30 14:34 | NUR ---
ASSUMED CARE AT SHIFT CHANGE, PT A/O X 4, FORGETFUL, DROWSY AT TIMES. C/O CONSTIPATION TODAY AND NAUSEA. PRN ZOFRAN GIVEN WHEN AVAILABLE.PT HAD ADEQUATE INTAKE WITH MEALS. MIRALAX VERBALLY ORDERED PER OUTSOLE CEMENTER MACHINE THIS MORNING DURING ROUNDING PRN. PT CONTINUES TO PASS GAS THROUGHOUT THE DAY. ASSESSMENTS PER CHART. [facility] AT 1500 WITH [facility]. PT UPDATED ON POC. RESTING IN BED WITH LIGHTS DIMMED AT THIS TIME., WILL CONT TO MONITOR AND INTERVENE PRN.
--- NOTE | 2018-08-30 14:51 | NUR ---
PICC D/C'D AND TELE REMOVED FROM PT BEFORE DISCHARGE TO [facility].
--- NOTE | 2018-08-30 14:56 | NUR ---
PT. DISCHARGING TODAY TO [facility] FAXED DC ORDERS/SUMMARY TO FACILITY. LEFT MSG WITH ZEE IN ADM. THAT DC ORDERS FAXED. SON (LASHAY) NOTIFIED OF DISCHARGE AND TIME OF TRANSPORT. UNIT NOTIFIED AND CHART COPY PER US. RN TO CALL REPORT TO [phone].
== END 2018-08-30 15:12 | DRG 853 ==
LOC: ER 10:14 → 2N 11:42 → EROBS 11:42 → 2N 13:04 → ICU 08-24 14:32 → 2N 08-28 20:33
PROVIDERS: Internal Medicine Pulmonary Disease; Nurse Practitioner Adult Health; Orthopaedic Surgery Foot and Ankle Surgery; Physician Assistant; ADMIT Internal Medicine
PROC: 02H633Z Insertion of Infusion Device into Right Atrium, Percutaneous Approach (ICD-10-PCS; principal; 2018-08-17)
PROC: 5A09357 Assistance with Respiratory Ventilation, Less than 24 Consecutive Hours, Continuous Positive Airway Pressure (ICD-10-PCS; 2018-08-25)
PROC: 0QS606Z Reposition Right Upper Femur with Intramedullary Internal Fixation Device, Open Approach (ICD-10-PCS; 2018-08-27)
PROC: 30233N1 Transfusion of Nonautologous Red Blood Cells into Peripheral Vein, Percutaneous Approach (ICD-10-PCS; 2018-08-28)
DX: A41.9 Sepsis, unspecified organism (principal); J18.9 Pneumonia, unspecified organism; J96.01 Acute respiratory failure with hypoxia; D62 Acute posthemorrhagic anemia; M80.851A Other osteoporosis with current pathological fracture, right femur, initial encounter for fracture; M06.9 Rheumatoid arthritis, unspecified; I10 Essential (primary) hypertension; E78.00 Pure hypercholesterolemia, unspecified; G89.29 Other chronic pain; M54.5 Low back pain; F41.9 Anxiety disorder, unspecified; K21.9 Gastro-esophageal reflux disease without esophagitis; E03.9 Hypothyroidism, unspecified; E87.6 Hypokalemia; M54.9 Dorsalgia, unspecified; G47.00 Insomnia, unspecified; Y95 Nosocomial condition; I95.9 Hypotension, unspecified; F32.9 Major depressive disorder, single episode, unspecified; E11.9 Type 2 diabetes mellitus without complications; E66.9 Obesity, unspecified; Z68.37 Body mass index [BMI] 37.0-37.9, adult; Z89.612 Acquired absence of left leg above knee; Z90.710 Acquired absence of both cervix and uterus; Z88.2 Allergy status to sulfonamides; Z88.8 Allergy status to other drugs, medicaments and biological substances
CPT/HCPCS: 10078; 10081; 50101; 50386; 50635; 51412; 51538; 51817; 52145; 52146; 56524; 56525; 57092; 62110; 62900